=== PATIENT | male | born 1945 | race Caucasian/White ===

== ENCOUNTER 2019-09-12 12:46 | Emergency (ER) | payer MEDICARE, SELFPAY ==
[2019-09-12 12:48] VITALS: BP 146/87; PULSE 80; PULSE 81; RESP 22; TEMP 36.2; O2SAT 94; O2SAT 95; BMI 22.2
[2019-09-12] MEDS: 0.9% Normal Saline 1,000 ML 150 ML IV (13:00)
--- NOTE | 2019-09-12 13:01 | CT_ITS ---
STUDY: CT ABDOMEN AND PELVIS WITHOUT CONTRAST REASON FOR EXAM: Male, 73 years old. Weight loss. Pain. RADIATION DOSAGE (If Supplied By Facility): CTDIvol = ( 16.78 ) mGy, DLP = ( 971.67 ) mGycm TECHNIQUE: Transaxial images were obtained from the dome of the diaphragm to the symphysis pubis without oral contrast, and without intravenous contrast. Sagittal and coronal images were reconstructed. Individualized dose optimization techniques were used for this CT. COMPARISON: None. FINDINGS: Evaluation of the abdominal viscera is limited in the absence of intravenous contrast. Please see the report for the CT of the chest which is dictated separately. There are multiple calcified gallstones present. The liver demonstrates an unremarkable unenhanced appearance. The spleen is normal in size. The pancreas demonstrates an unremarkable unenhanced appearance. There are bilateral indeterminate adrenal nodules. There are no renal or ureteral stones. There is no hydronephrosis. Normal visualized stomach. There is no bowel obstruction or inflammation. The appendix is not visualized, but there are no findings to suggest acute appendicitis. There is a 7.3 x 6.5 cm infrarenal abdominal aortic aneurysm which spans a craniocaudal distance of 9 cm. Please note that the lumen of the aorta is not evaluated without intravenous contrast. There is no abdominal or pelvic free air, free fluid, fluid collection or lymphadenopathy. There is a lytic lesion in the L2 vertebral body. There is a destructive lytic lesion at the L3 vertebral body with associated pathologic fractures of the superior and inferior endplates. CT/Abdomen/Pelvis without Cont IMPRESSION: 7.3 x 6.5 cm infrarenal abdominal aortic aneurysm. Please note that the lumen of the aorta is not evaluated without intravenous contrast. Destructive lytic lesion of the L3 vertebral body with associated pathologic fractures of the superior and inferior endplates. Lytic lesion in the L2 vertebral body. These are consistent with metastasis. Bilateral indeterminate adrenal nodules. Gallstones. No bowel obstruction or inflammation. No urinary calculi. No hydronephrosis. N.B. : The above information has been verbally conveyed by Babak Desouza to Gissell Gutierrez MD, on 09/12/2019 14:16:14 (ET). Electronically Signed: Babak Desouza, at 14:17 EDT Tel , Service support ,
--- NOTE | 2019-09-12 13:01 | EKG12_ITS ---
Test Reason : BACK PAIN Blood Pressure : / mmHG Vent. Rate : 068 BPM Atrial Rate : 068 BPM P-R Int : 140 ms QRS Dur : 094 ms QT Int : 406 ms P-R-T Axes : 061 025 043 degrees QTc Int : 431 ms Normal sinus rhythm Septal infarct , age undetermined Abnormal ECG Confirmed by RAQUEL BRYSON, DION ([id number]), videotape editor BARON HARRINGTON ([id number]) on 09/14/2019 1:12:55 PM Referred By: JOSE Confirmed By:DION GARCÍA MD
--- NOTE | 2019-09-12 13:02 | CT_ITS ---
STUDY: CT CHEST WITHOUT CONTRAST REASON FOR EXAM: Male, 73 years old. Cough. Weight loss. Pain. RADIATION DOSAGE (If Supplied By Facility): CTDIvol = ( 12.28 ) mGy, DLP = ( 453.99 ) mGycm TECHNIQUE: Transaxial imaging was performed without the administration of intravenous contrast material. Coronal and sagittal reformatted images were created. Individualized dose optimization techniques were used for this CT. COMPARISON: None FINDINGS: There are severe emphysematous changes noted in the lungs. There is a 3.7 x 3.3 cm spiculated mass in the lingula which is consistent with neoplasm. There are no pulmonary infiltrates or pleural effusions. There is no pneumothorax. The heart and pericardium are within normal limits. There is mediastinal lymphadenopathy with the largest node measuring 3.1 x 1.9 cm in the prevascular space. There is no evidence of thoracic aortic aneurysm. Please see the report for the CT of the abdomen and pelvis which is dictated separately. There are no destructive osseous lesions. CT/Chest without Contrast IMPRESSION: Severe emphysema. 3.7 x 3.3 cm spiculated mass in the lingula which is consistent with neoplasm. Mediastinal lymphadenopathy. Electronically Signed: Babak Desouza, at 14:13 EDT Tel , Service support ,
--- NOTE | 2019-09-12 13:03 | ED.VIS.GEN ---
History of Present Illness Chief Complaint: Back Informant: Patient Onset: Weeks Context: Gradual Onset Timing: Waxes and wanes Current Severity: Moderate Maximum Severity: Severe Narrative: Patient presents secondary to low back pain. He states that initially started about 3 weeks ago after picking up a gas can. Is worse with movement. Over the past week it is been constant and more severe. Pain feels like it shoots through to the abdomen. It does not radiate down his legs. He does report some constipation but no loss of bowel or bladder control. He denies any direct trauma to his back. He has chronic shortness of breath with mild cough. He states he lost his voice in April and is still very hoarse. He reports a 21 pound weight loss in the last 2 months without trying to lose weight. He does not have a family doctor and has not seen a doctor in quite some time. He does not take any medications. Past Medical History - Allergies and Home Meds Allergies/Adverse Reactions: Allergies No Known Allergies Allergy (Verified 09/12/19 12:47) Primary Care Physician: NOT,DEFINED [NON-STAFF] - Past Medical History: None Smoking Status: Former smoker Review of Systems General: Denies: Chills, Fever Eyes: Denies: Visual changes - bilaterally ENT: Reports: - - Hoarse voice. Denies: Bilateral ear pain Cardiovascular: Denies: Chest pain Respiratory: Reports: Dyspnea, Cough. Denies: Sputum Gastrointestinal: Reports: Abdominal pain, Constipation. Denies: Nausea, Vomiting, Diarrhea Genitourinary: Denies: Dysuria Musculoskeletal: Reports: Back pain. Denies: Extremity Pain Skin: Denies: Rash Neurological: Denies: Headache, Weakness, Parasthesia Hematologic: Denies: Easy bruising Allergy: Denies: Uticaria Physical Exam Vital Signs/Narrative: Vital Signs Temp Pulse Resp BP Pulse Ox 09/12/19 12:48 97.1 F L 80 22 H 146/87 H 95 Inital Vital Signs reviewed: Yes General: Well nourished, Well developed Head: Normocephalic ENT: Moist mucous membranes Neck: Supple Cardiovascular: Regular rate, Regular rhythm Respiratory: No distress, - - Mildly coarse breath sounds bilaterally.. Negative for: Rhonchi Abdomen: Soft, Nontender, Hypoactive bowel sounds Back: - - mild mid lumbar tenderness. Extremities: Nontender Skin: Normal color Neurological: Alert, Oriented x3 Psychological: Normal affect Diagnostic/Tx/Re-eval Impressions Abdomen/Pelvis CT 09/12/19 13:01 IMPRESSION: 7.3 x 6.5 cm infrarenal abdominal aortic aneurysm. Please note that the lumen of the aorta is not evaluated without intravenous contrast. Destructive lytic lesion of the L3 vertebral body with associated pathologic fractures of the superior and inferior endplates. Lytic lesion in the L2 vertebral body. These are consistent with metastasis. Bilateral indeterminate adrenal nodules. Gallstones. No bowel obstruction or inflammation. No urinary calculi. No hydronephrosis. N.B. : The above information has been verbally conveyed by Babak Desouza to Gissell Gutierrez MD, on 09/12/2019 14:16:14 (ET). Electronically Signed: Babak Desouza at 14:17 EDT Tel , Service support , ADDENDUM: 09/12/19 1424 IMPRESSION: 7.3 x 6.5 cm infrarenal abdominal aortic aneurysm. Please note that the lumen of the aorta is not evaluated without intravenous contrast. Destructive lytic lesion of the L3 vertebral body with associated pathologic fractures of the superior and inferior endplates. Lytic lesion in the L2 vertebral body. These are consistent with metastasis. Bilateral indeterminate adrenal nodules. Gallstones. No bowel obstruction or inflammation. No urinary calculi. No hydronephrosis. N.B. : The above information has been verbally conveyed by Babak Desouza to Gissell Gutierrez MD, on 09/12/2019 14:16:14 (ET). Electronically Signed: Babak Desouza at 14:17 EDT Tel , Service support , Chest CT 09/12/19 13:02 IMPRESSION: Severe emphysema. 3.7 x 3.3 cm spiculated mass in the lingula which is consistent with neoplasm. Mediastinal lymphadenopathy. Electronically Signed: Babak Desouza at 14:13 EDT Tel , Service support , 09/12/19 13:01 Abdomen/Pelvis without Cont [CT] Stat 09/12/19 13:02 CT Chest [Chest without Contrast] [CT] Stat Laboratory Results 09/12/19 09/12/19 13:14 13:14 WBC 7.9 RBC 4.17 L Hgb 11.5 L Hct 37.8 L MCV 90.6 MCH 27.6 MCHC 30.4 L RDW Std Deviation 49.1 H RDW Coeff of Ravi 14.8 H Plt Count 312 MPV 9.6 Immature Gran % (Auto) 0.300 Neut % (Auto) 82.4 H Lymph % (Auto) 10.4 L Forest % (Auto) 5.7 Eos % (Auto) 0.6 Baso % (Auto) 0.6 Absolute Neuts (auto) 6.5 Absolute Lymphs (auto) 0.82 L Nucleated RBC % 0 Sodium 140 Potassium 3.7 Chloride 107 Carbon Dioxide 26.0 Anion Gap 7 BUN 34 H Creatinine 1.46 H Estim Creat Clear Calc 46.14 Est GFR (MDRD) Af Amer 61 Est GFR (MDRD) Non-Af 50 L BUN/Creatinine Ratio 23.3 H Glucose 93 Calcium 10.1 Total Bilirubin 0.50 Direct Bilirubin 0.18 AST 16 ALT 16 Alkaline Phosphatase 97 Total Protein 8.4 H Albumin 3.3 Globulin 5.1 H - EKG Initial EKG Interpretation: Sinus Rhythm - Sinus at 68. No acute ischemia. - Medical Decision Making Patient was given morphine and Zofran for pain control. On repeat evaluation he is resting more comfortably. Test results are discussed with patient and daughter at bedside. My primary concern is ensuring that the aneurysm is stable, then the new diagnosis of cancer can be staged and further evaluated. Patient was discussed with [facility] and has been accepted in transfer. While we are waiting to hear back from them CTAs were obtained. I do not see any obvious signs of leaking aneurysm, however formal reports are still pending at this time. Patient has been hemodynamically stable. ED Disposition - Plan for ED Patient: Disposition: [facility] - Main Diagnosis: Abdominal aortic aneurysm, Lung mass, Pathologic fracture Referrals: NOT,DEFINED [NON-STAFF] -
--- NOTE | 2019-09-12 13:06 | NURSING ---
NO OLD EKGS
[2019-09-12] MEDS: Ondansetron 4 MG/2 ML Vial IV (13:18)
[2019-09-12] MEDS: Morphine 4 MG/ML Syringe IV ×3 (13:18→18:49)
[2019-09-12 13:24] LABS: Absolute Lymphocyte Count 0.82 X10^3/uL (0.83-4.51); Absolute Neutrophil Count 6.5 X10^3/uL (2.0-7.7); Basophil# 0.05 X10^3/uL; Basophil% 0.6 % (0-1); Eosinophil# 0.05 X10^3/uL; Eosinophils% 0.6 % (0-5); Hematocrit 37.8 % (40-54); Hemoglobin 11.5 g/dL (13.0-16.5); Lymphocyte # 0.82 X10^3/ul (4.0); Lymphocyte % 10.4 % (19-41); Mean Corp Hgb Conc 30.4 g/dL (32-36); Mean Corpuscular Hgb 27.6 pg (27.0-32.0); Mean Corpuscular Volume 90.6 fL (80-94); Mean Platelet Vol. 9.6 fl (6.2-12.0); Monocyte# 0.45 X10^3/uL; Monocyte% 5.7 % (0-10); NRBC Flagged by Analyzer 0 % (0-5); Neutrophil # 6.47 X10^3/uL (2.7-7.7); Neutrophil % 82.4 % (47-70); Platelet Count 312 K/mm3 (150-450); RBC Distribution Width CV 14.8 % (11.6-14.6); RBC Distribution Width SD 49.1 fl (35.1-43.9); Red Blood Count 4.17 M/mm3 (4.6-6.2); White Blood Count 7.9 K/mm3 (4.4-11.0)
[2019-09-12 13:42] LABS: AST(SGOT) 16 U/L (15-37); Alanine Aminotransfer ALT/SGPT 16 U/L (16-61); Albumin, Serum 3.3 g/dL (3.2-5.0); Alkaline Phosphatase 97 U/L (45-117); Anion Gap 7 (5-15); BUN 34 mg/dL (7-18); BUN/Creat Ratio 23.3 RATIO (10-20); Bilirubin, Direct 0.18 mg/dL (0.00-0.30); Calcium,Total 10.1 mg/dL (8.5-10.1); Chloride 107 mmol/L (98-107); Creatinine, Serum 1.46 mg/dL (0.70-1.30); EST Glomerular Filtration Rate 50 mL/min (>60); Est Glom Filt Rate - Afr Amer 61 mL/min (>60); Estimated Creatinine Clearance 46.14 ml/min; Globulin 5.1 g/dL (2.2-4.2); Glucose 93 mg/dL (74-106); Potassium 3.7 mmol/L (3.5-5.1); Protein, Total 8.4 g/dL (6.4-8.2); Sodium Level 140 mmol/L (136-145)
--- NOTE | 2019-09-12 14:38 | NURSING ---
CALLED [facility] ABOUT TRANSFER. HAD TO LEAVE MESSAGE
--- NOTE | 2019-09-12 14:51 | NURSING ---
CALLED [facility] AGAIN LEFT MESSAGE
[2019-09-12 15:00] VITALS: BP 141/97; PULSE 62; RESP 18; O2SAT 88
--- NOTE | 2019-09-12 15:34 | NURSING ---
1533 CALLED [facility]. TALKED TO LIBRADO. SHE WAS TALKING TO DR GARCIA
--- NOTE | 2019-09-12 15:35 | ED.RN ---
PER DR GARCIA REQUEST, DAUGHTER CONTACTED INFORMED THAT THE PT WAS NOT ACCEPTED AT [facility] AND WE ARE ATTEMPTING ANOTHER HOSPITAL. DAUGHTER REQUESTED THIS NURSE NOTIFIED THE PATIENT SHE WAS AWARE
[2019-09-12 16:13] LABS: Bacteria 0 SEEN /hpf (None Seen); Mucous, Urine 0 SEEN /hpf (<or=2+); White Blood Cells 0 SEEN /hpf (0-5)
[2019-09-12 16:15] LABS: Color, Urine Yellow (Yellow); Glucose, Dipstick Normal (Normal); Ketone-Dipstick 50 mg/dl (Negative); Leukocyte Esterase-Dipstick Negative /ul (Negative); Nitrite-Dipstick Negative (Negative); Occult Blood-Urine 10 /ul (Negative); Protein-Dipstick 30 mg/dl (Negative); Specific Gravity, Urine 1.015 (1.002-1.030); Urine Bilirubin Dipstick Negative (Negative); Urine Clarity Sl. Cloudy (Clear); Urine Urobilinogen Normal (Normal)
--- NOTE | 2019-09-12 16:26 | CT_ITS ---
STUDY: CTA CHEST, ABDOMEN AND PELVIS WITH IV CONTRAST REASON FOR EXAM: Male, 73 years old. Aneurysm RADIATION DOSAGE (If Supplied By Facility): CTDIvol = ( 8.28 ) mGy, DLP = ( 482.94 ) mGycm TECHNIQUE: Transaxial images were obtained through the chest, abdomen and pelvis without oral contrast, and with intravenous contrast. Sagittal and coronal images were reconstructed. Individualized dose optimization techniques were used for this CT. COMPARISON: Noncontrast CT dated 09-12-19 FINDINGS: There are stable severe emphysematous changes noted in the lungs. There is a stable 3.7 x 3.3 cm spiculated mass in the lingula which is consistent with neoplasm. There are no pulmonary infiltrates or pleural effusions. There are stable mediastinal lymphadenopathy with the largest node measuring 3.1 x 1.9 cm in the prevascular space. There is no evidence of pulmonary embolus. There is no evidence of thoracic aortic aneurysm or dissection. The great vessels are patent and normal in caliber. There are gallstones noted within the gallbladder. The liver, spleen, pancreas and kidneys are within normal limits. Again noted are bilateral indeterminate adrenal nodules. There is a 7.3 x 6.5 cm partially thrombosed infrarenal abdominal aortic aneurysm. There is no evidence of abdominal aortic dissection. There is no evidence of aortic rupture. The celiac artery, superior mesenteric artery, bilateral renal arteries and inferior mesenteric artery are patent and normal in caliber. 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 The left common iliac artery is normal in caliber. There is no bowel obstruction or inflammation. There is no abdominal or pelvic free air, free fluid or lymphadenopathy. Again noted are metastatic lesions in the L2 and L3 vertebral bodies with a pathologic fracture of L3. CT/CT ANGIO ABD&PEL W/O&W/DYE IMPRESSION: No evidence pulmonary embolus. No evidence of thoracic aortic aneurysm or dissection. 7.3 x 6.5 cm partially thrombosed infrarenal abdominal aortic aneurysm. No evidence of abdominal aortic dissection. No evidence of aortic rupture. 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 Severe emphysema with a 3.7 x 3.3 cm spiculated mass in the lingula which is consistent with neoplasm. Mediastinal lymphadenopathy. Metastatic lesions in the L2 and L3 vertebral bodies with pathologic fractures of L3. Bilateral indeterminate adrenal nodules. Gallstones. No bowel obstruction or inflammation. N.B. : The above information has been verbally conveyed by Babak Desouza to Gissell Gutierrez MD, on 09/12/2019 17:50:20 (ET). Electronically Signed: Babak Desouza, at 17:51 EDT Tel , Service support ,
[2019-09-12 16:33] LABS: Hyaline Cast 0-5 SEEN /lpf (0-5); Red Blood Cells-Urine 0-5 SEEN /hpf (0-5); Squamous Epithelial Cells - UA 0-5 SEEN /hpf (0-5)
--- NOTE | 2019-09-12 16:37 | CT_ITS ---
STUDY: CTA CHEST, ABDOMEN AND PELVIS WITH IV CONTRAST REASON FOR EXAM: Male, 73 years old. Aneurysm RADIATION DOSAGE (If Supplied By Facility): CTDIvol = ( 8.28 ) mGy, DLP = ( 482.94 ) mGycm TECHNIQUE: Transaxial images were obtained through the chest, abdomen and pelvis without oral contrast, and with intravenous contrast. Sagittal and coronal images were reconstructed. Individualized dose optimization techniques were used for this CT. COMPARISON: Noncontrast CT dated 09-12-19 FINDINGS: There are stable severe emphysematous changes noted in the lungs. There is a stable 3.7 x 3.3 cm spiculated mass in the lingula which is consistent with neoplasm. There are no pulmonary infiltrates or pleural effusions. There are stable mediastinal lymphadenopathy with the largest node measuring 3.1 x 1.9 cm in the prevascular space. There is no evidence of pulmonary embolus. There is no evidence of thoracic aortic aneurysm or dissection. The great vessels are patent and normal in caliber. There are gallstones noted within the gallbladder. The liver, spleen, pancreas and kidneys are within normal limits. Again noted are bilateral indeterminate adrenal nodules. There is a 7.3 x 6.5 cm partially thrombosed infrarenal abdominal aortic aneurysm. There is no evidence of abdominal aortic dissection. There is no evidence of aortic rupture. The celiac artery, superior mesenteric artery, bilateral renal arteries and inferior mesenteric artery are patent and normal in caliber. 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 The left common iliac artery is normal in caliber. There is no bowel obstruction or inflammation. There is no abdominal or pelvic free air, free fluid or lymphadenopathy. Again noted are metastatic lesions in the L2 and L3 vertebral bodies with a pathologic fracture of L3. CT/CTA Chest W/WO Contrast IMPRESSION: No evidence pulmonary embolus. No evidence of thoracic aortic aneurysm or dissection. 7.3 x 6.5 cm partially thrombosed infrarenal abdominal aortic aneurysm. No evidence of abdominal aortic dissection. No evidence of aortic rupture. 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 Severe emphysema with a 3.7 x 3.3 cm spiculated mass in the lingula which is consistent with neoplasm. Mediastinal lymphadenopathy. Metastatic lesions in the L2 and L3 vertebral bodies with pathologic fractures of L3. Bilateral indeterminate adrenal nodules. Gallstones. No bowel obstruction or inflammation. N.B. : The above information has been verbally conveyed by Babak Desouza to Gissell Gutierrez MD, on 09/12/2019 17:50:20 (ET). Electronically Signed: Babak Desouza, at 17:51 EDT Tel , Service support ,
--- NOTE | 2019-09-12 17:17 | NURSING ---
CALLED [facility], TALKED TO AUGUSTINE. STILL WAITING ON A BED
[2019-09-12 18:31] VITALS: BP 143/84; PULSE 68; RESP 20; TEMP 36.4; O2SAT 96
== END 2019-09-12 19:11 | disposition short-term general hospital (02) ==
PROVIDERS: Emergency Provider Emergency Medicine
DX: I71.4 Abdominal aortic aneurysm, without rupture (principal); R91.8 Other nonspecific abnormal finding of lung field; M84.48XA Pathological fracture, other site, initial encounter for fracture; Z87.891 Personal history of nicotine dependence
CPT/HCPCS: 71250; 71275; 74174; 74176; 80048; 80076; 81001; 85025; 93005; 96361; 96374; 96375; 96376; 99285; J7030; Q9967; A4216; J2405